=== PATIENT | male | born 1965 | race Caucasian/White ===

== ENCOUNTER 2018-03-14 16:35 | Emergency (ER) | payer BC ==
[~2018-03-14] VITALS: Ht 162.6 cm; Wt 90.7 kg
[2018-03-14] MEDS ORDERED: CIPRO500 MG PO (17:51)
[2018-03-14] MEDS ORDERED: OXYCODONE-ACET1 EAC1 PO (17:51)
[2018-03-14] MEDS ORDERED: FENTANYL1 EAC1 (17:51)
[2018-03-14] MEDS ORDERED: MUCINEX DM ER1 EACH PO (17:51)
[2018-03-14] MEDS ORDERED: ZANAFLEX2 M1 (17:51)
[2018-03-14] MEDS ORDERED: KETOROLAC TROMETHAMINE 60 MG/2 ML VIAL IM ONE (18:30)
--- NOTE | 2018-03-14 20:04 | Diagnostic Imaging Report ---
EXAMINATION: FOREARM LEFT 2 VIEW 03/14/2018 5:57 PM COMPARISON: None INDICATION: Injury to lower arm DISCUSSION: 2 views of the left forearm No fracture or dislocation. Joint spaces are maintained. Multiple metallic clips in the soft tissues of the left forearm. IMPRESSION: No acute radiographic abnormality of the left forearm. Gerardo Caceres MD Signed by: Dr. Gerardo Caceres M.D. on 03/14/2018 8:01 PM
== END 2018-03-14 20:45 | disposition home or self-care (01) ==
LOC: ER 16:35
DX: M79.632 Pain in left forearm (principal); S46.212A Strain of muscle, fascia and tendon of other parts of biceps, left arm, initial encounter; X50.3XXA Overexertion from repetitive movements, initial encounter; Y99.0 Civilian activity done for income or pay; F17.210 Nicotine dependence, cigarettes, uncomplicated
CPT/HCPCS: 29125; 36415; 73090; 82550; 99284; J1885